=== PATIENT | female | born 1960 | race Hispanic/Latino ===

== ENCOUNTER 2022-03-06 01:41 | Emergency (ER) | payer OTHER ==
[~2022-03-06] VITALS: Ht 154.9 cm; Wt 72.6 kg
[2022-03-06] MEDS ORDERED: CEPHALEXIN MONOHYDRATE 250 MG CAP ONE (02:03)
[2022-03-06] MEDS ORDERED: KETOROLAC TROMETHAMINE 60 MG/2 ML VIAL ONE (02:03)
[2022-03-06] MEDS ORDERED: IBUPROFEN400 MG PO (02:10)
[2022-03-06] MEDS ORDERED: CEPHALEXIN500 MG PO (02:10)
[2022-03-06] MEDS ORDERED: BACTRIM DS TAB1 EACH PO (02:10)
[2022-03-06] MEDS ORDERED: ULTRACET TABLE1 EACH PO (02:10)
[2022-03-06] MEDS ORDERED: CEPHALEXIN MONOHYDRATE 250 MG CAP PO ONE (02:15)
[2022-03-06] MEDS ORDERED: KETOROLAC TROMETHAMINE 60 MG/2 ML VIAL IM ONE (02:15)
== END 2022-03-06 02:34 | disposition home or self-care (01) ==
LOC: FSED 01:46
DX: L02.212 Cutaneous abscess of back [any part, except buttock and flank] (principal)
CPT/HCPCS: 10060; 99282; J1885